=== PATIENT | female | born 1995 ===

== ENCOUNTER 2021-10-24 15:56 | Outpatient (CLI) | payer OTHER | END 2021-10-24 23:59 | disposition home or self-care (01) | LOC: LAB.N 15:56 | PROVIDERS: ATTEND Physician Assistant | DX: J06.9 Acute upper respiratory infection, unspecified (principal); Z20.822 Contact with and (suspected) exposure to COVID-19 ==

== ENCOUNTER 2021-12-22 15:56 | Outpatient (CLI) | payer OTHER ==
--- NOTE | 2021-12-22 18:15 | SLEEP CARE CONSULTATION ---
Information from patient questionnaire entered by Luis Gama. I have reviewed and concur with the information entered by Luis Gama. This document represents the service I personally performed and the decisions made by me, Adolfo Hannon MD, [facility]. History of Present Illness Service Date and Time: 12/22/2021 1556 Reason for Visit: New patient (INITIAL, NARCOLEPSY ) Additional HPI information: I have the pleasure of seeing Ms. Hoskins today regarding narcolepsy. As you know, she is a 26-year-old lady who was diagnosed with narcolepsy in 2017 in [place]. She had good response to modafinil and armodafinil. She said one sleep physician tried to switch her to Adderall but she refused. Later she was later prescribed solriamfetol (Sunosi) and pitolisant (Wakix). She said one did not last as long as armodafinil and the other one caused her to gain weight. She also participated in research trials of other drugs. Her last trial just ended a week ago. She would like to go back on armodafinil. Besides excessive daytime sleepiness, she reports having hypnagogic hallucination but not cataplexy or sleep paralysis. There is some family history of excessive daytime sleepiness. 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 Patient is and lives in [place]. Family History Family history of sleep disordered breathing: Yes (a few relatives are sleepy) Allergies and Home Medications Drug allergies reviewed: Yes Home medication list reviewed: Yes Review of Systems Cardiovascular: denies: high blood pressure, palpitations, chest pain, irregular heart rate or pulse, leg or foot swelling, have to sleep sitting up, other Respiratory: denies: shortness of breath, wheeze, sputum production, chronic cough, other Gastrointestinal: denies: heartburn, difficulty swallowing, nausea, vomitting, diarrhea, abdominal pain, other Urinary: denies: incontinence, frequency, urgency, impotence, other Neurological: denies: headaches, seizure, head trauma, disorientation, speech dysfunction, gait or balance problems, fainting or unconsciousness, other Psychiatric: denies: Attention Deficit Hyperactivity, anxiety, depression, mood disorder, claustrophobia, other Ear/Nose/Throat: denies: nasal congestion, sinus problems, nose bleeds, dry mouth/throat, hoarseness, injury to nose, tonsillectomy, wisdom teeth removed, other Endocrine: denies: thyroid disease, history of goiter, sluggishness, too hot or cold, excessive thirst, increased appetite, increased urination, unexplained weakness, other Musculoskeletal: denies: joint pain, neck pain, back pain, joint swelling, muscle pain or cramping, mobility problems, other Immunologic: denies: sneezing, rash, itching, allergies to food or environment, other Physical Exam Vital signs obtained and entered by: ANIA STEVENSON Impression and Plan IMPRESSION: 1. Narcolepsy without cataplexy, as previously diagnosed. I told her that I would be happy to prescribe her armodafinil after reviewing her medical records from [place]. I do not see that the records are scanned into [facility] yet. Repeating the sleep studies is not necessary unless she requires a stronger medication, e.g. Ritalin, Adderall, or Xyrem. I cautioned her that armodafinil can render control pills ineffective. She said she has a same-sex spouse. Plan: 1. The patient is to provide our clinic with her medical records from [place]. 2. Prescription for armodafinil 250 mg will be made one the records are available. 3. Return for a follow up after one month on the treatment. Follow up with Sleep Care in: 1-2 months Visit Type: Telehealth Video (PHONE# [phone]) Video Type: Doximity Patient Location: Home Location of Provider: Home Patient agrees and consents to this telehealth visit type: Yes Patient agrees to have their insurance billed: Yes Time Spent with Patient (minutes): 15 Provider Statement: I spent 100% of the Telehealth Video Call with the patient with greater than 50% spent counseling the patient and coordination of care.
== END 2021-12-22 15:57 | disposition home or self-care (01) ==
LOC: SC 15:56
PROVIDERS: ATTEND Internal Medicine Pulmonary Disease
DX: G47.419 Narcolepsy without cataplexy (principal)

== ENCOUNTER 2022-02-09 14:59 | Outpatient (CLI) | payer OTHER ==
[2022-02-11 22:32] VITALS: BP 126/78
--- NOTE | 2022-02-11 22:32 | SLEEP CARE CONSULTATION ---
Information from patient questionnaire entered by Aram Carreon MA. I have reviewed and concur with the information entered by Aram Carreon MA. This document represents the service I personally performed and the decisions made by me, Adolfo Hannon MD, [facility]. History of Present Illness Service Date and Time: 02/09/2022 1459 Reason for follow up: one month (F/U NARCOLEPSY, ) HPI additional information: Ms. Hoskins returned today for follow up of treatment of narcolepsy. She was originally diagnosed in [place]. She participated in the studies of solriamfetol and pitolisant while in [place]. She said neither worked well and one caused weight gain. I prescribed her armodafinil a month ago. She reports some improvement but is still sleepy. Her [place] Sleepiness Scale score is 24. He reports increased irritability with the medication. She allows herself 9 hours for sleeping at night. Subjective Current [place] Sleepiness Scale score: 24 (02/09/2022) Allergies and Home Medications Known drug allergies: No Drug allergies reviewed: Yes Home medication list reviewed: Yes Review of Systems Review of systems same as previous: Yes Physical Exam Vital signs obtained and entered by: Chanel CARREON CMA AAYOSHI Blood Pressure: 126/78 (RESP 16, PULSE 72, LEFT) Cuff size: wrist Heart Rate: 74 O2 Saturation: 98 (PAPER MASK) Height: 5 ft 2 in Weight: 130 lb 8 oz Body Mass Index: 23.8 BMI Classification: Healthy weight Neck circumference: 12 (INCHES) Impression and Plan IMPRESSION: 1. Narcolepsy without cataplexy. the patient doing fairly well armodafinil. She does not want anything stronger. The only side effect she has is irritability. PLAN: 1. Continue with armodafinil 2. Return in one year for follow up or earlier if there is any problem with the treatment. Prescriptions: Other Follow up with Sleep Care in: 1 year Visit Type: In Office Time Spent with Patient (minutes): 12 Provider Statement: I spent 100% of the Face to Face Visit with the patient with greater than 50% spent counseling the patient and coordination of care.
== END 2022-02-09 15:00 | disposition home or self-care (01) ==
LOC: SC 14:59
PROVIDERS: ATTEND Internal Medicine Pulmonary Disease
DX: G47.419 Narcolepsy without cataplexy (principal); R45.4 Irritability and anger; T50.995A Adverse effect of other drugs, medicaments and biological substances, initial encounter
CPT/HCPCS: 99212

== ENCOUNTER 2023-01-04 11:14 | Outpatient (CLI) | payer OTHER ==
[2023-01-04 15:04] VITALS: BP 114/66
--- NOTE | 2023-01-04 15:04 | SLEEP CARE CONSULTATION ---
Information from patient questionnaire entered by Paige Olivares. I have reviewed and concur with the information entered by Paige Olivares. This document represents the service I personally performed and the decisions made by me, Adolfo Hannon MD, [facility]. History of Present Illness Service Date and Time: 01/04/2023 1114 Reason for follow up: other (11 MONTH F/U) HPI additional information: Ms. Hoskins is a 26-year-old lady who was diagnosed with narcolepsy in 2017 in [place]. She had good response to modafinil and armodafinil. She said one sleep physician tried to switch her to Adderall but she refused. She was later prescribed solriamfetol (Sunosi) and pitolisant (Wakix). She said one did not last as long as armodafinil and the other one caused her to gain weight. She also participated in research trials of other drugs. She has been taking armodafinil regularly for a year now. She reports getting more than 8 hours of sleep a night but is still sleepy during the day. [place] Sleepiness Scale score is = 19. She continues to deny having cataplexy and sleep paralysis. She thinks armodafinil makes her angry more than necessary. She does not snore. Allergies and Home Medications Drug allergies reviewed: Yes Home medication list reviewed: Yes Review of Systems Review of systems same as previous: Yes Physical Exam Vital signs obtained and entered by: Gerber Hannon Blood Pressure: 114/66 Cuff size: regular Heart Rate: 64 O2 Saturation: 100 Height: 5 ft 2 in Weight: 163 lb Body Mass Index: 29.8 BMI Classification: Overweight Mood/affect: normal Impression and Plan IMPRESSION: 1. Narcolepsy without cataplexy, as previously diagnosed. She is doing fairly well on armodafinil 250 mg a day in the morning. She is still sleepy. She reports agitation on the medication but is not sure if she has it off the medication. Repeating the sleep studies is not necessary unless she requires a stronger medication, e.g. Ritalin, Adderall, or Xyrem. I cautioned her that armodafinil can render control pills ineffective. She said she has a same-sex spouse. If she continues to gain weight, another sleep study may be needed to make sure she does not have sleep-related breathing disorder. Plan: 1. Refill armodafinil 250 mg #30 with 3 refills. 2. Return for a follow up in one year. Prescriptions: Other (armodafinil) Follow up with Sleep Care in: 1 year Visit Type: In Office Time Spent with Patient (minutes): 15 Provider Statement: I spent 100% of the Face to Face Visit with the patient with greater than 50% spent counseling the patient and coordination of care.
== END 2023-01-04 11:15 | disposition home or self-care (01) ==
LOC: SC 11:14
PROVIDERS: ATTEND Internal Medicine Pulmonary Disease
DX: G47.419 Narcolepsy without cataplexy (principal)
CPT/HCPCS: 99212

== ENCOUNTER 2023-03-06 14:54 | Emergency (ER) | payer OTHER ==
[2023-03-06] MEDS ORDERED: KETOROLAC 30 MG/ML VIAL IM STA (15:11)
[2023-03-06] MEDS ORDERED: oxyCODONE 5 MG TABLET PO STA ×2 (15:14→21:01)
--- NOTE | 2023-03-06 15:17 | ED Physician Documentation ---
History of Present Illness - Stated complaint Stated Complaint: LT KNEE INJ - Chief complaint Chief Complaint: Ext Problem - Additonal information Additional information: 28-year-old female presents emergency department for evaluation of acute left knee injury. She was running an obstacle course when she felt an immediate pop and pain in the left side of her knee. She attempted to walk initially and complete the course but was unable to. Subsequently she has developed fairly significant swelling in the lateral side of the knee and now inability to bear weight. No previous history of knee injury. She does have a history of narcolepsy for which she takes armodafinil, anxiety for which she takes Zoloft and oxcarbazepine. Review of Systems Musculoskeletal: reports: Joint pain PD PAST MEDICAL HISTORY - Past Surgical History Past Surgical History: No - Present Medications Home Medications: Ambulatory Orders Medication Instructions Recorded Confirmed Buspirone HCl 03/06/23 Ibuprofen [Motrin] 600 mg PO Q6H PRN #30 tab 03/06/23 Oxcarbazepine [Oxtellar Xr] 03/06/23 Sertraline HCl 100 mg PO 03/06/23 armodafiniL [Nuvigil] 250 mg PO 03/06/23 oxyCODONE [Roxicodone] 5 mg PO TID PRN #20 tablet 03/06/23 - Allergies Allergies/Adverse Reactions: Allergies Allergy/AdvReac Type Severity Reaction Status Date / Time No Known Drug Allergies Allergy Verified 03/06/23 15:18 - Social History Does the pt smoke?: No Smoking Status: Never smoker Does the pt drink ETOH?: No Does the pt have substance abuse?: No - Immunizations Immunizations are current?: Yes - POLST Patient has POLST: No PD ED PE EXPANDED - General General: Alert, In Pain - Extremities Extremities: Left knee (Significant swelling and tenderness of the left lateral knee. Patient does not allow laxity testing secondary to pain. Limited ability to flex the knee secondary to pain. Neurovascular intact distally. 2+ DP pulse. No obvious deformity.) Results - Vitals Vitals: Vital Signs - 24 hr 03/06/23 03/06/23 03/06/23 14:58 15:08 15:34 Temperature 36.3 C L Heart Rate 68 91 91 Respiratory 16 19 Rate Blood Pressure 72/35 L 93/41 L 100/73 O2 Saturation 100 100 100 07/04/2103/06/23 03/06/23 17:03 18:22 21:06 Temperature Heart Rate 88 86 63 Respiratory 15 16 63 H Rate Blood Pressure 107/68 107/64 108/58 L O2 Saturation 99 99 100 Oxygen O2 Source Room air - Labs Labs: Laboratory Tests 03/06/23 03/06/23 16:44 16:44 WBC 15.4 H RBC 4.40 Hgb 13.3 Hct 40.0 MCV 90.9 MCH 30.2 MCHC 33.3 RDW 11.9 L Plt Count 271 MPV 10.5 Neut # (Auto) 12.7 H Lymph # (Auto) 1.2 L Tillman # (Auto) 1.1 H Eos # (Auto) 0.3 Baso # (Auto) 0.1 Absolute Nucleated RBC 0.00 Nucleated RBC % 0.0 Sodium 140 Potassium 3.7 Chloride 106 Carbon Dioxide 26 Anion Gap 8.0 BUN 16 Creatinine 0.6 Estimated GFR (MDRD) 117 Glucose 116 H Calcium 9.0 Total Bilirubin 0.3 AST 17 ALT 26 Alkaline Phosphatase 74 Total Protein 7.2 Albumin 4.0 Globulin 3.2 Albumin/Globulin Ratio 1.3 Lipase 39 - Rads (name of study) left knee xr Relevant Findings:: Final report received (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 Suprapatellar joint effusion suggest possible internal derangement) PD Medical Decision Making - ED course Complexity details: reviewed results, re-evaluated patient, d/w patient ED course: 28-year-old female presents emergency department for evaluation of acute left knee pain. She was running an obstacle course when she felt a pop on the lateral side of the knee and had difficulty bearing weight. Presentation to the ER she has significant swelling and tenderness on the lateral side of the knee. Clinically I am suspicious for internal derangement or lateral ligamentous tear/sprain. Initially we did obtain some x-ray imaging of the left knee. 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 With this finding today and MRI availability, we have elected to perform an MRI with and without contrast of the knee for further differentiation. I have also obtained screening CBC and electrolytes. Per my interpretation mild leukocytosis. I suspect this is stress marginalization. Electrolytes showed no acute worrisome findings. I discussed this x-ray imaging finding with the pa angel and her at the bedside. They understand that she will need emergent orthopedic referral for further evaluation and management of this tumor, regardless of whether it is deemed benign or not on MRI. In the interim the patient will be placed in a left knee immobilizer and given crutches to help with pain and management of the ligamentous injury which is now secondary to findings of a bony tumor Patient is signed out to my nighttime colleague to follow-up on the MRI results and final dc home I am prescribing a short course of short-acting opioid pain medication for this patient. I have reviewed the patients [employer] and no concerning findings were noted. I have discussed that the opioids are for short term therapy only, and will not be refilled from the ED. Departure - Departure Clinical Impression: Internal derangement of left knee Tear of LCL (lateral collateral ligament) of knee Qualifiers: Encounter type: initial encounter Laterality: left Qualified Code(s): S83.422A - Sprain of lateral collateral ligament of left knee, initial encounter Condition: Serious Record reviewed to determine appropriate education?: Yes Instructions: ED Sprain Knee Prescriptions: Ibuprofen [Motrin] 600 mg PO Q6H PRN #30 tab PRN Reason: Pain oxyCODONE [Roxicodone] 5 mg PO TID PRN #20 tablet PRN Reason: Pain Comments: Unfortunately the x-ray of your knee showed that you have a bony tumor. We elected to obtain an MRI of the knee today in the emergency department for further differentiation of this. It is critical that you follow very closely with an orthopedic surgeon. I recommend you contact [facility] on Wednesday and ask for an urgent referral. Ideally you would be seen within the next week by and orthopedic doctor. Please bring the MRI disc with you to the appointment.. You do have some internal knee derangement or ligamentous injury but at this time management of that is secondary to appropriate treatment of this tumor. I do recommend however that you wear the knee immobilizer when out of bed and use crutches for ambulation. I have sent a [facility]cod[facility] [place]. You can use this if you find that ibuprofen taken with food 2-3 times a day does not improve your symptoms. Use the oxycodone sparingly as it is addictive, tolerance develops quickly, it makes you unsafe to drive and will cause constipation. I am prescribing a short course of narcotic pain medication for you. These are potentially dangerous and addictive medications that should be used carefully. These medications may constipate you. Take an bwgi-zwx-uohcmzs stool softener (docusate) twice daily with plenty of water while taking these medications. If you go 24 hours without a bowel movement, take dqep-[id number] miralax, per package instructions. Do not drink or drive while taking these medications. If you received narcotic or sedating medications while in the emergency department, do not drive for 24 hours. Store this medication in a safe, secure place and out of reach of children. It is a violation of federal law to give or sell this medication to another person or to use in a manner other than prescribed. The ED will not refill narcotic prescriptions, including prescriptions lost or stolen. To dispose of unwanted medications: 1. [facility] at [address] in [place] has a medication drop box. They accept prescription medications (in pill form) Wednesday through Wednesday 9:00 a.m. to 5:00 p.m. 2. The [facility] accepts prescription medications (in pill form only) for disposal year round. Call for more information. 3. Contact the [facility] for the next [facility] sponsored prescription drug collection event. , [phone], or [phone]; Note that many narcotic pain relievers also contain Tylenol/acetaminophen. P lease ensure that your total dose of acetaminophen from all sources does not exceed 3 g (3000 mg) per day.
--- NOTE | 2023-03-06 16:25 | XRAY Report ---
PROCEDURE: Knee 3 View LT INDICATIONS: popping sensation with obstacle course TECHNIQUE: 3 views of the left knee(s) were acquired. COMPARISON: None. FINDINGS: Bones: No fractures or dislocations. An osseous bone tumor measuring 2 x 4 cm extending from the fib ular metaphysis medially. The lesion is exophytic and broad-based. The tumor causes mass effect on th e lateral posterior tibia likely due to chronic pressure. Soft tissues: Suprapatellar knee joint effusion. No suspicious soft tissue calcifications or masses. IMPRESSION: 1. Osseous tumor as described above, likely enchondroma, however differential diagnosis includes marcella gnant transformation to chondrosarcoma or less likely parosteal osteosarcoma. Recommend MRI and refer ral to orthopedic surgery. 2. Suprapatellar joint effusion suggests possible internal derangement. Reviewed by: Mayank Abraham on 03/06/2023 3:23 PM ABILIO Approved by: Mayank Abraham on 03/06/2023 3:23 PM ABILIO Station ID: [id number]
[2023-03-06 16:54] LABS: BASOPHILS # (AUTO) 0.1 10^3/uL (0.0-0.1); BASOPHILS % (AUTO) 0.5 %; EOSINOPHILS # (AUTO) 0.3 10^3/uL (0.0-0.7); HGB - HEMOGLOBIN 13.3 g/dL (12.0-16.0); LYMPHOCYTES # (AUTO) 1.2 10^3/uL (1.5-3.5); LYMPHOCYTES % (AUTO) 7.7 %; MEAN CORPUSCULAR HEMOGLOBIN 30.2 pg (27.0-31.0); MEAN CORPUSCULAR HGB CONC 33.3 g/dL (32.0-36.0); MEAN CORPUSCULAR VOLUME 90.9 fL (81.0-99.0); MEAN PLATELET VOLUME 10.5 fL (7.9-10.8); MONOCYTES # (AUTO) 1.1 10^3/uL (0.0-1.0); MONOCYTES % (AUTO) 7.2 %; NEUTROPHILS # (AUTO) 12.7 10^3/uL (1.5-6.6); NEUTROPHILS % (AUTO) 82.3 %; PLT - PLATELET COUNT 271 10^3/uL (130-450); RED CELL DISTRIBUTION WIDTH 11.9 % (12.0-15.0); WHITE BLOOD COUNT 15.4 x10^3/uL (4.8-10.8)
[2023-03-06 17:06] LABS: ALBUMIN/GLOBULIN RATIO 1.3 (1.0-2.2); BILIRUBIN,TOTAL 0.3 mg/dL (0.2-1.0); CREATININE 0.6 mg/dL (0.4-1.0); POTASSIUM 3.7 mmol/L (3.5-5.0); TOTAL PROTEIN 7.2 g/dL (6.7-8.2)
[2023-03-06] MEDS ORDERED: HYDROmorphone 1 MG/ML CARPUJECT IVP STA (18:03)
[2023-03-06] MEDS ORDERED: GADOBUTROL 7.5 MMOL/7.5 ML VIAL ONE (19:07)
[2023-03-06] MEDS ORDERED: GADOBUTROL 7.5 MMOL/7.5 ML VIAL IVP ONE (20:02)
[2023-03-06] MEDS ORDERED: IBUPROFEN 600 MG TABLET PO STA (21:00)
[2023-03-06] MEDS ORDERED: oxyCODONE/ACET 5/325 Prepack 4 PO STA (22:04)
--- NOTE | 2023-03-06 22:04 | ED Physician Documentation ---
ED Addendum - Addendum Addendum: 03/06/23 21:59 Patient received a signout from off going [facility]. Please see their documentation for further detail. MRI results discussed with radiology. Newly identified lateral tibial plateau fracture with 2 mm depression. Exact nature of the osseous mass remains unsure per their interpretation with recommendation for follow-up with orthopedic/[facility] type radiologist. Care was discussed with Dr. Heath, Orthopedic surgery who is in agreement with plan for knee immobilizer, crutches, nonweightbearing and follow-up in clinic on Wednesday.
--- NOTE | 2023-03-06 22:35 | MRI Report ---
PROCEDURE: KNEE W/WO - LT INDICATIONS: Osteosarcoma versus endocrine Brianne on x-ray CONTRAST: GADAVIST 7.3 ML TECHNIQUE: Noncontrast sagittal PD fast spin echo and T2 fast spin echo with fat saturation, sagittal 3-D spoile d GE with fat saturation; coronal T1 spin echo and PD fast spin echo with fat saturation, and axial T 1 spin echo and PD fast spin echo with fat saturation through the knee. Post-contrast axial, coronal , and sagittal T1 spin echo with fat saturation through the knee. COMPARISON: Correlation made to plain films performed on the same day. FINDINGS: Image quality: Excellent. Mildly depressed fracture of the lateral tibial plateau with morphology consistent with a Schatzker t ype III tibial plateau fracture. There is slight thickening and edema overlying cartilage surface. No visible cartilage fracture. There is osseous edema throughout the lateral proximal tibia. There is a 3.8 cm osseous excrescence with a broad-based attachment to, and arising from the medial a spect of the proximal fibular metaphysis. The cortex is continuous between the mass and tibia. [employer] al marrow signal is heterogeneous with possibly acute osseous edema. There is a minimal, if any carti alex cap and hypointense overlying irregular perichondrium. Reactive, well-corticated, chronic-appear ing scalloping is seen along the lateral aspect of the tibial metaphysis. Postcontrast, no definite i ntrinsic or suspicious adjacent enhancement. Bone alignment is normal. There is a large lipohemarthrosis present. Retinacular fibers are intact. D istal quadriceps and patellar tendons are intact. Cruciate and collateral ligaments are intact. The e xpected tendinous attachments are normal. IMPRESSION: 1. Minimally depressed Schatzker type III lateral tibial plateau fracture. 2. Large lipohemarthrosis. 3. 3.8 cm, benign-appearing osseous excrescence arising from the medial proximal fibula. This is most likely an osteochondroma. No suspicious features to suggest chondrosarcoma. Heterogeneous marrow sig nal within this lesion is present and acute osseous edema within or contusion of the osseous excresce nce is possible given that it is in direct vertical alignment with the overlying tibial plateau fract ure. Consider orthopedic follow-up. 4. Preliminary results called to the emergency room at 2143 hours. Reviewed by: Adrienne Shanks MD on 03/06/2023 10:33 PM PDT Approved by: Adrienne Shanks MD on 03/06/2023 10:33 PM PDT Station ID: [id number]
[2023-03-08 11:15] VITALS: BP 108/58
== END 2023-03-06 22:30 | disposition home or self-care (01) ==
LOC: ED 14:54
DX: S82.142A Displaced bicondylar fracture of left tibia, initial encounter for closed fracture (principal); M23.92 Unspecified internal derangement of left knee; S83.422A Sprain of lateral collateral ligament of left knee, initial encounter; D49.2 Neoplasm of unspecified behavior of bone, soft tissue, and skin; X58.XXXA Exposure to other specified factors, initial encounter; Y93.02 Activity, running
CPT/HCPCS: 36415; 73562; 73723; 80053; 83690; 85025; 96372; 96374; 99284; A9270; A9585; J1170